=== PATIENT | female | born 1995 | race Hispanic/Latino ===

== ENCOUNTER 2018-05-27 20:40 | Emergency (ER) | payer OTHER ==
[2018-05-27] MEDS ORDERED: predniSONE 20 MG TAB ONE ×2 (21:30→21:32)
[2018-05-27] MEDS ORDERED: Albuterol Sulfate 2.5 mg/3 ml Neb ONE (21:35)
--- NOTE | 2018-05-27 21:43 | RAD ---
FPortable chest: HISTORY: Asthma COMPARISON: none FINDINGS: Lung headley are clear. Heart and mediastinum appear unremarkable. Vascularity is normal. Visualized osseous structures unremarkable. IMPRESSION: No acute finding
== END 2018-05-27 23:17 | disposition home or self-care (01) ==
LOC: ERS 20:40
DX: J45.901 Unspecified asthma with (acute) exacerbation (principal); Z79.51 Long term (current) use of inhaled steroids
CPT/HCPCS: 71045; 94644; J7611; J7620